=== PATIENT | female | born 1950 | race Caucasian/White ===

== ENCOUNTER → 2017-05-12 | Outpatient (CLI) | payer MEDICARE, OTHER ==
[~2017-05-12] MED LIST: CALCIUM 600 PLU1 TAB PO; LIVALO2 MG PO; MACROBID 100MG100 MG PO
--- NOTE | 2017-05-12 15:51 | RADIOLOGY REPORT PS360 ---
BONE DENSITOMETRY(HIP:LT SPINE HISTORY: POST MENOPAUSAL ORDERING PHYSICIAN: Justino Graves MD PATIENT AGE: 67 years COMPARISON: None FINDINGS: The BMD measured at the right femoral neck is 0.889 g/cm squared with a T score of -1.1. This is considered Osteopenic according to the World Health Organization criteria. Fracture risk is Moderate. Treatment is advised. IMPRESSION: Osteopenia. Recommend follow-up exam April 2019
== END ==
LOC: RAD 13:18
DX: Z78.0 Asymptomatic menopausal state (principal)